=== PATIENT | female | born 1955 | race Two or more races ===

== ENCOUNTER 2018-03-15 12:11 | Emergency (ER) | payer MEDICAID ==
[2018-03-15 14:13] LABS: URINE BLOOD (Dip) POC 3+ (NEGATIVE); URINE KETONES (Dip) POC 2+ (NEGATIVE); URINE LEUKOCYTE EST (Dip) POC 3+ (NEGATIVE); URINE NITRITE (Dip) POC Negative (NEGATIVE); URINE TOTAL PROTEIN POC 3+ (NEGATIVE)
== END 2018-03-15 14:47 | disposition home or self-care (01) ==
LOC: FTE 12:11
DX: N39.0 Urinary tract infection, site not specified (principal); I10 Essential (primary) hypertension; E11.9 Type 2 diabetes mellitus without complications; Z79.84 Long term (current) use of oral hypoglycemic drugs
CPT/HCPCS: 81003; 99283

== ENCOUNTER 2018-07-28 22:03 | Emergency (ER) | payer MEDICAID | END 2018-07-28 23:35 | disposition home or self-care (01) | LOC: FTE 23:35 | DX: R21 Rash and other nonspecific skin eruption (principal); I10 Essential (primary) hypertension; E11.9 Type 2 diabetes mellitus without complications; Z79.84 Long term (current) use of oral hypoglycemic drugs | CPT/HCPCS: 99283; Z7502 ==